=== PATIENT | female | born 1945 | race Asian ===

== ENCOUNTER 2017-07-03 07:57 | Emergency (ER) | payer MEDICARE, OTHER ==
[~2017-07-03] VITALS: Ht 157.5 cm; Wt 58.6 kg
[~2017-07-03 07:57] MED LIST: AMLO10TA2 PO; ASPI-621 PO; ATOR10TA9 PO; LOSA100T6 PO; METO-99 PO; PANT20TA2 PO
[2017-07-03] MEDS ORDERED: SODIUM CHLORIDE 0.9% 1,000 ML IV ONE (09:11)
[2017-07-03] MEDS ORDERED: ATEN25TA PO (09:13)
[2017-07-03] MEDS ORDERED: MECLIZINE CHEWABLE 25 MG TAB ONE (09:19)
[2017-07-03] MEDS ORDERED: ONDANSETRON 2MG/ML, 2ML ONE (09:20)
[2017-07-03] MEDS ORDERED: ONDANSETRON 2MG/ML, 2ML IVPush ONE (09:30)
[2017-07-03] MEDS ORDERED: SODIUM CHLORIDE FLUSH 10ML SYR IVF ONE (09:30)
[2017-07-03] MEDS ORDERED: MECLIZINE CHEWABLE 25 MG TAB PO ONE (09:30)
[2017-07-03 09:38] LABS: BASOPHILS # (AUTO) 0.02 x10^3/uL (0-0.1); BASOPHILS % (AUTO) 0 % (0-1); EOSINOPHILS # (AUTO) 0.07 x10^3/uL (0-0.4); EOSINOPHILS % (AUTO) 1 % (1-7); LYMPHOCYTES # (AUTO) 1.29 x10^3/uL (1-3.4); LYMPHOCYTES % (AUTO) 22 % (22-44); MD NO; MEAN CORPUSCULAR HEMOGLOBIN 31.5 pg (27.0-34.8); MEAN CORPUSCULAR HGB CONC 33.8 g/dL (32.4-35.8); MEAN CORPUSCULAR VOLUME 93.2 fL (80-100); MEAN PLATELET VOLUME 7.5 fL (7.4-10.4); MONOCYTES # (AUTO) 0.43 x10^3/uL (0.2-0.8); MONOCYTES % (AUTO) 7 % (2-9); NEUTROPHILS % (AUTO) 70 % (42-75); PLATELET COUNT 321 x10^3/uL (130-400); RED BLOOD COUNT 4.55 x10^6/uL (3.82-5.3); RED CELL DISTRIBUTION WIDTH 13.1 % (9.6-15.2)
[2017-07-03 09:51] LABS: ALANINE AMINOTRANSFERASE 19 U/L (12-78); ALBUMIN 4.3 g/dL (3.4-5.0); ANION GAP 7 mmol/L (5-15); CALCIUM 8.8 mg/dL (8.5-10.1); CHLORIDE 103 mmol/L (98-107)
[2017-07-03 09:56] LABS: ALKALINE PHOSPHATASE 72 U/L (45-117); BILIRUBIN,TOTAL 0.7 mg/dL (0.2-1.0); TOTAL PROTEIN 8.3 g/dL (6.4-8.2); TROPONIN I < 0.015 ng/mL (0.000-0.045)
[2017-07-03 10:57] VITALS: BP 136/77
[2017-07-03 11:19] LABS: MICROSCOPIC NOT IND
[2017-07-03 11:23] LABS: CULTURE INDICATED? NO
== END 2017-07-03 13:28 | disposition home or self-care (01) ==
LOC: ED 11:55
DX: R42 Dizziness and giddiness (principal); R11.0 Nausea
CPT/HCPCS: 36415; 70450; 80053; 81003; 82962; 84484; 85025; 93005; 96361; 96374; 99285; J2405; J7030

== ENCOUNTER → 2017-07-07 | Outpatient (CLI) | payer MEDICARE, OTHER ==
[~2017-07-07] MED LIST changes: +ATEN25TA PO
== END ==
LOC: CFH 08:43
PROVIDERS: ATTEND Family Medicine
DX: Z12.31 Encounter for screening mammogram for malignant neoplasm of breast (principal)
CPT/HCPCS: 77063; 77067

== ENCOUNTER → 2018-06-08 | Outpatient (CLI) | payer MEDICARE, BC ==
[~2018-06-08] MED LIST changes: -AMLO10TA2 PO; +AMLO10TA8 PO; -ASPI-621 PO; +ASPI81TA45 PO; +LOSA100T14 PO; -LOSA100T6 PO
== END | disposition home or self-care (01) ==
LOC: CFH 12:52
PROVIDERS: ATTEND Family Medicine
DX: N64.4 Mastodynia (principal)
CPT/HCPCS: 76641; 77066; G0279

== ENCOUNTER 2019-04-04 09:41 | Emergency (ER) | payer MEDICARE, BC ==
[~2019-04-04] VITALS: Ht 157.5 cm; Wt 58.0 kg
[2019-04-04] MEDS ORDERED: METF500T17 PO (10:30)
--- NOTE | 2019-04-04 10:31 | NUR ---
PT TO ED FOR RIGHT SHOULDER AD UPPER ACK PAIN X2 WEEKS. PT DENIES CP OR PRESSURE. PT CONNECTED TO ALL MONIOTRS. VSS. XR AND EKG COMPLETE. AWAITING BLOOD DRAW.
--- NOTE | 2019-04-04 10:33 | NUR ---
ALL RESUTLS BACK AT THIS TIME. CHART UP FOR RECHECK.
[2019-04-04] MEDS ORDERED: HYDROcodone/APAP 5/325 TABLET PO ONE (11:00)
[2019-04-04] MEDS ORDERED: HYDROcodone/APAP 5/325 TABLET ONE (11:02)
--- NOTE | 2019-04-04 11:04 | NUR ---
PT RESTING IN ROOM. VSS. FAMILY AT BS. PT MEDICATED PER JUL. POC DISCUSSED. PT AGREEABLE. AWAITING CT.
--- NOTE | 2019-04-04 11:44 | NUR ---
pt to ct.
--- NOTE | 2019-04-04 12:26 | NUR ---
PT RESTING IN ROOM. VSS. FAMILY AT BS. NO NEEDS EXPRESSED. CT RESULTS BACK. CHART UP FOR RECHECK.
[2019-04-04 14:18] VITALS: BP 124/76
== END 2019-04-04 14:37 | disposition home or self-care (01) ==
LOC: ED 14:00
DX: M47.22 Other spondylosis with radiculopathy, cervical region (principal); M47.894 Other spondylosis, thoracic region; M47.896 Other spondylosis, lumbar region; I10 Essential (primary) hypertension; K21.9 Gastro-esophageal reflux disease without esophagitis; E11.9 Type 2 diabetes mellitus without complications; E78.5 Hyperlipidemia, unspecified
CPT/HCPCS: 72125; 72128; 72131; 93005; 99284

== ENCOUNTER 2019-07-22 14:13 | Outpatient (CLI) | payer MEDICARE, BC ==
[~2019-07-22 14:13] MED LIST changes: +METF500T17 PO
== END 2019-07-22 23:59 | disposition home or self-care (01) ==
LOC: CFH 14:13
PROVIDERS: ATTEND Family Medicine
DX: Z12.31 Encounter for screening mammogram for malignant neoplasm of breast (principal)
CPT/HCPCS: 77063; 77067

== ENCOUNTER 2021-01-10 09:05 | Outpatient (CLI) | payer MEDICARE, BC ==
[~2021-01-10 09:05] MED LIST changes: +AMLO-211 PO; -AMLO10TA8 PO
== END 2021-01-10 23:59 | disposition home or self-care (01) ==
LOC: CFH 09:05
PROVIDERS: ATTEND Family Medicine
DX: Z12.31 Encounter for screening mammogram for malignant neoplasm of breast (principal)
CPT/HCPCS: 77063; 77067